=== PATIENT | male | born 1970 | race African-American/Black ===

== ENCOUNTER → 2020-12-05 | Outpatient (CLI) | payer OTHER ==
--- NOTE | 2020-12-05 09:12 | RAD ---
EXAM: Lumbar spine, 3 views. HISTORY: Pain. COMPARISON: None. FINDINGS: 3 views of the lumbar spine are obtained. There is mild multilevel endplate remodeling and facet arthropathy. There is no listhesis. There is no suspicious osseous lesion. IMPRESSION: Mild multilevel endplate remodeling and facet arthropathy. No acute osseous finding. Electronically signed by: Nadine Parker MD (12/05/2020 9:10 AM) [id number]
--- NOTE | 2020-12-05 09:29 | RAD ---
INDICATION: Reason: LEFT SIDED FLANK/ABDOMINAL PAIN / Spl. Instructions: / History: COMPARISON: October 2014 TECHNIQUE: Axial CT images were obtained through the abdomen and pelvis without intravenous contrast. One or more of the following individualized dose reduction techniques were utilized for this examinat ion: 1. Automated exposure control; 2. Adjustment of the mA and/or kV according to patient size; 3 . Use of iterative reconstruction technique. FINDINGS: Fat-containing right inguinal hernia. Vascular: Scattered calcific atherosclerosis. Hepatobiliary: There is a couple of lesions seen within the liver anteriorly with one of them having the appearance of cyst and the other appearing slightly higher than simple density. The higher densit y lesion measures 36 x 31 mm and previously measured 35 x 27 mm in 2015 Pancreas: No peripancreatic edema. Spleen: Calcifications within the spleen. Renal: Left renal cyst. No hydronephrosis. Bladder: No definite inflammatory changes to the bladder. Gastrointestinal: Colonic diverticulosis. No periappendiceal inflammatory changes. Postoperative munoz ges to the anterior abdominal wall. Degenerative changes of the spine. Calcifications at the hamstrings tendons which could be from calci fic tendinosis or sequela of avulsion injury. IMPRESSION: * No evidence of bowel obstruction, appendicitis or hydronephrosis. * Repeat demonstration of low-density liver mass with adjacent liver cystic lesion. This mass does n ot measure as simple cyst and could either be solid or secondary to complex cystic lesion. This corre sponds to the previously biopsied mass in 2014 but does appear slightly increased in size compared to prior. Correlation with pathology findings is needed. Electronically signed by: Douglas Live MD (12/05/2020 9:27 AM) [id number]
== END ==
LOC: CT 08:51
PROVIDERS: ATTEND Family Medicine
DX: K40.90 Unilateral inguinal hernia, without obstruction or gangrene, not specified as recurrent (principal); K57.30 Diverticulosis of large intestine without perforation or abscess without bleeding
CPT/HCPCS: 72100; 74176